=== PATIENT | female | born 1965 | race Caucasian/White ===

== ENCOUNTER → 2021-12-07 | Outpatient (CLI) | payer OTHER ==
[2021-12-07 17:49] LABS: BASO % 0.4 % (0.0-1.0); EOS % 0.5 % (0.0-3.0); HEMATOCRIT 40.9 % (36.0-47.0); HEMOGLOBIN 13.3 g/dl (12.0-15.5); LYMPH # 3.3 10^3/uL (1.5-5.0); MEAN CORPUSCULAR HEMOGLOBIN 27.5 pg (27.0-33.0); MEAN CORPUSCULAR HGB CONC 32.5 g/dl (32.0-36.5); MEAN CORPUSCULAR VOLUME 84.5 fl (80.0-96.0); MONO # 0.4 10^3/uL (0.0-0.8); MONO % 4.4 % (2.0-8.0); NEUTROPHILS # 4.7 10^3/uL (1.5-8.5); NEUTROPHILS % 55.3 % (36.0-66.0); PLATELET COUNT, AUTOMATED 360 10^3/uL (150-450); RED BLOOD COUNT 4.84 10^6/uL (4.00-5.40); WHITE BLOOD COUNT 8.5 10^3/uL (4.0-10.0)
[2021-12-07 17:51] LABS: ALBUMIN 4.3 GM/DL (3.2-5.2); ALT/SGPT 50 U/L (12-78); BILIRUBIN,TOTAL 0.3 MG/DL (0.2-1.0); BLOOD UREA NITROGEN 10 MG/DL (7-18); C REACTIVE PROTEIN QUANTITATIV 0.47 MG/DL (0.00-0.30); CALCIUM LEVEL 10.4 MG/DL (8.5-10.1); CARBON DIOXIDE LEVEL 27 MEQ/L (21-32); CHLORIDE LEVEL 105 MEQ/L (98-107); CREATININE FOR GFR 0.76 MG/DL (0.55-1.30); GLOMERULAR FILTRATION RATE > 60.0 (>51); GLUCOSE, FASTING 94 MG/DL (70-100); POTASSIUM SERUM 4.8 MEQ/L (3.5-5.1); SODIUM LEVEL 139 MEQ/L (136-145); TOTAL PROTEIN 7.3 GM/DL (6.4-8.2)
[2021-12-07 18:18] LABS: ERYTHROCYTE SEDIMENTATION RATE 5 mm/hr (0-30)
== END ==
LOC: M PLAIMG 14:48
PROVIDERS: ATTEND Internal Medicine Rheumatology
DX: M25.50 Pain in unspecified joint (principal); M79.7 Fibromyalgia; M15.9 Polyosteoarthritis, unspecified; M1A.09X0 Idiopathic chronic gout, multiple sites, without tophus (tophi); Z72.0 Tobacco use

== ENCOUNTER 2025-03-13 21:32 | Emergency (ER) | payer OTHER ==
[~2025-03-13] VITALS: Ht 165.1 cm; Wt 79.1 kg
[2025-03-13 21:36] VITALS: TEMP 98
[2025-03-13] MEDS ORDERED: AMLO1TAB24 PO (21:54)
[2025-03-13] MEDS ORDERED: ESOM40CA35 PO (21:54)
[2025-03-13] MEDS ORDERED: ABIL10TA9 PO (21:54)
[2025-03-13] MEDS ORDERED: ALLO100T PO (21:54)
[2025-03-13] MEDS ORDERED: CELE0.09 PO (21:54)
[2025-03-13] MEDS ORDERED: QUET1TAB17 PO (21:54)
[2025-03-13] MEDS ORDERED: BUSP15TA47 PO (21:54)
[2025-03-13] MEDS ORDERED: BACL1TAB9 PO (21:54)
[2025-03-13] MEDS ORDERED: GABA-1635 PO (21:54)
[2025-03-13] MEDS: CIPROFLOXACIN 500 MG TABLET PO ONE (22:44)
[2025-03-13] MEDS: TETANUS/DIPHTH/ACEL. PERTUSSIS 0.5 ML SYR IM ONE (22:45)
[2025-03-13] MEDS ORDERED: CIPR-249 PO (22:47)
[2025-03-13 22:56] VITALS: BP 129/68; O2SAT 98
== END 2025-03-13 22:56 | disposition home or self-care (01) ==
LOC: M ED 21:32
DX: S91.342A Puncture wound with foreign body, left foot, initial encounter (principal); W45.0XXA Nail entering through skin, initial encounter; F31.9 Bipolar disorder, unspecified; Y92.009 Unspecified place in unspecified non-institutional (private) residence as the place of occurrence of the external cause; Y93.89 Activity, other specified; Y99.9 Unspecified external cause status; Z88.0 Allergy status to penicillin; Z79.899 Other long term (current) drug therapy; Z79.2 Long term (current) use of antibiotics; Z23 Encounter for immunization